=== PATIENT | male | born 1985 | race African-American/Black ===

== ENCOUNTER 2020-08-31 07:17 | Emergency (ER) | payer SELFPAY ==
[2020-08-31] MEDS ORDERED: IBUPROFEN 800 MG TABLET PO ONE (08:00)
--- NOTE | 2020-08-31 08:47 | RADIOLOGY REPORT (SQ) ---
EXAM DESCRIPTION: HAND RIGHT 3 VIEWS IMAGES COMPLETED DATE/TIME: 08/31/2020 8:12 am REASON FOR STUDY: pain in right hand/wrist/carpal tunnel syndrome COMPARISON: None. EXAM PARAMETERS: NUMBER OF VIEWS: Three views. TECHNIQUE: AP, lateral and oblique radiographic images acquired of the right hand. LIMITATIONS: None. FINDINGS: MINERALIZATION: Normal. BONES: No acute fracture or dislocation. No worrisome bone lesions. No significant osteophytes. JOINTS: No erosions. No belkis-articular osteopenia. No chondrocalcinosis. SOFT TISSUES: No swelling. No calcifications. OTHER: No other significant finding. IMPRESSION: NEGATIVE STUDY OF THE RIGHT HAND. NO EXPLANATION FOR PAIN. TECHNICAL DOCUMENTATION: JOB ID: [id number] 2010 [employer]- All Rights Reserved Reading location - IP/workstation name: [email or web address]
--- NOTE | 2020-08-31 09:17 | ER Document Report ---
Entered by BRITTANIE EARLY SCRIBE 08/31/20 0751 Acting as scribe for:YAMILET CHOI MD ED Extremity Problem, Upper - General Chief Complaint: Wrist Pain Stated Complaint: WRIST PAIN AND SWELLING Time Seen by Provider: 08/31/20 07:30 Information source: Patient Notes: This 34 year old male patient presents to the emergency department today with complaints of constant swelling and pain to his right wrist for the past x2 days. Patient states this occurs sometimes to his wrist or right knee. Patient reports taking Advil once without relief. Patient states the pain in his wrist travels to his fingertips. Patient is right hand dominant and denies known history of gout or arthritis. TRAVEL OUTSIDE OF THE [place] IN LAST 30 DAYS: No - Related Data Allergies/Adverse Reactions: No Known Allergies Allergy (Verified 08/31/20 07:22) Past Medical History - General Information source: Patient - Social History Smoking Status: Current Every Day Smoker Cigarette use (# per day): Yes Chew tobacco use (# tins/day): No Frequency of alcohol use: None Drug Abuse: None Occupation: [employer] Family History: None Patient has homicidal ideation: No Pulmonary Medical History: Reports: Hx Pneumonia Musculoskeletal Medical History: Denies Hx Arthritis, Denies Hx Gout - Immunizations Hx Diphtheria, Pertussis, Tetanus Vaccination: Yes - UNKNOWN Review of Systems - Review of Systems Constitutional: No symptoms reported EENT: No symptoms reported Cardiovascular: No symptoms reported Respiratory: No symptoms reported Gastrointestinal: No symptoms reported Genitourinary: No symptoms reported Male Genitourinary: No symptoms reported Musculoskeletal: See HPI, Other - R wrist swelling and pain Skin: No symptoms reported Hematologic/Lymphatic: No symptoms reported Neurological/Psychological: No symptoms reported -: Yes All other systems reviewed and negative Physical Exam - Vital signs Vitals: Temp Pulse Resp BP Pulse Ox 97.9 F 78 16 132/87 H 100 08/31/20 07:22 08/31/20 07:22 08/31/20 07:22 08/31/20 07:22 08/31/20 07:22 - General General appearance: Appears well, Alert - HEENT Head: Normocephalic, Atraumatic Eyes: Normal Pupils: PERRL - Respiratory Respiratory status: No respiratory distress Chest status: Nontender Breath sounds: Normal Chest palpation: Normal - Cardiovascular Rhythm: Regular Heart sounds: Normal auscultation Murmur: No - Abdominal Inspection: Normal Distension: No distension Bowel sounds: Normal Tenderness: Nontender - Extremities General lower extremity: Normal inspection, Normal ROM. No: Edema Notes: Numbness and tingling to all right hand fingers, especially to fingers 4 and 5, when the right wrist carpal tunnel region is tapped. Nail clubbing to bilateral hands. Patient states he has always had this. - Neurological Neuro grossly intact: Yes Cognition: Normal Orientation: AAOx4 Franco Coma Scale Eye Opening: Spontaneous Franco Coma Scale Verbal: Oriented [place] Coma Scale Motor: Obeys Commands [place] Coma Scale Total: 15 Speech: Normal Sensory: Normal - Psychological Associated symptoms: Normal affect, Normal mood - Skin Skin Temperature: Warm Skin Moisture: Dry Skin Color: Normal Course - Re-evaluation Re-evalutation: 08/31/20 09:15 Patient resting comfortably. Patient is in a cock-up splint on the right wrist. Neuromotor circulatory examination intact in all digits. Patient states the wrist splint has reduced movement in the wrist area. - Vital Signs Vital signs: Temp Pulse Resp BP Pulse Ox 97.9 F 78 16 132/87 H 100 08/31/20 07:22 08/31/20 07:22 08/31/20 07:22 08/31/20 07:22 08/31/20 07:22 08/31/20 09:16 Vital signs stable. - Diagnostic Test Radiology reviewed: Image reviewed, Reports reviewed Radiology results interpreted by me: 08/31/20 09:16 Hand X-Ray 08/31/20 07:59 IMPRESSION: NEGATIVE STUDY OF THE RIGHT HAND. NO EXPLANATION FOR PAIN. Right hand x-ray negative study of the right hand. No evidence of arthritis or fractures or dislocation. Discharge - Discharge Clinical Impression: Carpal tunnel syndrome of right wrist Condition: Stable Disposition: HOME, SELF-CARE Additional Instructions: Carpal Tunnel Syndrome Your examination suggests carpal tunnel syndrome. This syndrome is due to pressure on a nerve in the wrist. The pressure may be caused by an old injury, hard work using the wrist, work involving repeated motions of the hand, wrist positions that keep pressure on the joint, or arthritis in the wrist. Typical symptoms are tingling, numbness, and pain in the palm, thumb, index and middle fingers, and one side of the ring finger. Often a splint, ice packs, and antiinflammatory medication make the symptoms go away. If the physician feels that your problem is chronic, you will be referred to a specialist for further care. If symptoms do not go away, carpal tunnel syndrome may require surgery. You should call the doctor if pain increases, if you develop difficulty using the thumb or fingers, or if major swelling occurs. Prescriptions: Methylprednisolone [Medrol Dosepack (4 mg/Tab) 21 Tab/Dosepak] 4 mg PO ASDIR PRN #21 tab.[id number] PRN Reason: Ibuprofen [Motrin 800 mg Tablet] 800 mg PO Q8H PRN #30 tab PRN Reason: pain Referrals: ARETHA KATZ DO [ACTIVE STAFF] - Follow up as needed I personally performed the services described in the documentation, reviewed and edited the documentation which was dictated to the scribe in my presence, and it accurately records my words and actions.
[2020-08-31 09:28] VITALS: BP 125/72
== END 2020-08-31 09:28 | disposition home or self-care (01) ==
LOC: ER 07:17
DX: G56.01 Carpal tunnel syndrome, right upper limb (principal); M25.531 Pain in right wrist; M79.89 Other specified soft tissue disorders; F17.210 Nicotine dependence, cigarettes, uncomplicated; Z79.899 Other long term (current) drug therapy
CPT/HCPCS: 99283